=== PATIENT | female | born 1985 | race Two or more races ===

== ENCOUNTER 2020-04-29 13:10 | Inpatient (IN) | payer BC ==
[2020-04-29] MEDS: ELECTROLYTE-148 SOLN 1,000 ML IV SCH (14:10)
[2020-04-29] MEDS ORDERED: CITRIC ACID/SODIUM CITRATE 30 ML UNIT-DOSE CUP PO ONE (15:15)
[2020-04-29] MEDS ORDERED: ELECTROLYTE-148 SOLN 500 ML IV ONE (15:15)
[2020-04-29] MEDS ORDERED: ONDANSETRON 4 MG/2 ML VIAL IVPUSH PRN ×2 (15:16→17:11)
[2020-04-29] MEDS ORDERED: morphine SULFATE/PF 0.5 MG/ML (2cc Syringe - QUVA) ONE (15:25)
[2020-04-29] MEDS ORDERED: ELECTROLYTE-148 SOLN 500 ML IV SCH (15:45)
[2020-04-29] MEDS ORDERED: OXYTOCIN 10 UNITS/ML VIAL ONE ×2 (16:20→16:56)
[2020-04-29] MEDS ORDERED: PHENYLEPHRINE HCL 10 MG/1 ML SINGLE DOSE VIAL ONE (16:20)
[2020-04-29] MEDS ORDERED: KETOROLAC TROMETHAMINE 30 MG/1 ML VIAL ONE (16:20)
[2020-04-29] MEDS ORDERED: ONDANSETRON 4 MG/2 ML VIAL ONE ×2 (16:20→21:29)
[2020-04-29] MEDS ORDERED: morphine SULFATE/PF 0.5 MG/ML (2cc Syringe - QUVA) SPIN ONE (17:06)
[2020-04-29] MEDS ORDERED: MINERAL OIL/PETROLATUM,WHITE 3.5 GM TUBE ONE (17:33)
[2020-04-29] MEDS ORDERED: oxyCODONE HCL 5 MG TABLET PO PRN ×2 (17:37)
[2020-04-29] MEDS ORDERED: IBUPROFEN 800 MG/8 ML IJ IVPB PRN (17:37)
[2020-04-29] MEDS ORDERED: IBUPROFEN 600 MG TABLET (FP) PO PRN (17:37)
[2020-04-29] MEDS ORDERED: WITCH HAZEL 50% (TUCKS) 40 PAD/JAR PAD TP PRN (17:37)
[2020-04-29] MEDS ORDERED: SENNOSIDES/DOCUSATE COMBO (SENNA PLUS) TABLET (UD) PO PRN (17:37)
[2020-04-29] MEDS ORDERED: BENZOCAINE 28 GM HEMORRHOIDAL OINTMENT TP PRN (17:37)
[2020-04-29] MEDS ORDERED: BENZOCAINE 20% 57 GM BOTTLE TP PRN (17:37)
[2020-04-29] MEDS ORDERED: METHYLERGONOVINE MALEATE 0.2 MG/1 ML AMP IM PRN (17:37)
[2020-04-29 17:41] LABS: CORD BASE EXCESS -4.7 mmol/L (0-2); CORD HCO3 21.2 mmHg (20-29); CORD HCO3 26.2 mmHg (20-29); CORD PCO2 65.7 mmHg (30-78); CORD pH 7.218 (7.14-7.44); CORD pH 7.32 (7.14-7.44)
[2020-04-29] MEDS: OXYTOCIN 20 UNITS in 0.9% NS 20 UNIT/1,000 ML INFUS.BAG IV SCH (18:00)
[2020-04-29] MEDS ORDERED: OXYTOCIN 20 UNITS in 0.9% NS 20 UNIT/1,000 ML INFUS.BAG IV ONE (22:13)
[2020-04-30 07:18] LABS: BASO % 0.3 % (0-2.0); EOS % 0.3 % (0-4.5); HEMATOCRIT 27.5 % (32.4-45.2); HEMOGLOBIN 8.9 GM/dL (10.7-15.3); LYMPH % 15.7 % (8-40); MCH 27.6 pg (25.7-33.7); MCHC 32.4 g/dl (32.0-36.0); MEAN CELL VOLUME 85.2 fl (80-96); MONO % 3.9 % (3.8-10.2); NEUT % 79.8 % (42.8-82.8); PLATELET COUNT 233 K/MM3 (134-434); RBC 3.23 M/mm3 (3.60-5.2); RDW 16.3 % (11.6-15.6)
[2020-04-30] MEDS: PRENATAL VITAMINS W/ FOLIC ACID TABLET (FP) PO SCH (10:08)
[2020-04-30] MEDS: ENOXAPARIN NA (PORCINE) 40 MG/0.4 ML DISP.SYRIN SQ SCH (10:08)
[2020-04-30] MEDS: ACETAMINOPHEN 325 MG TABLET (FP) PO PRN ×2 (10:08→17:07)
[2020-04-30] MEDS: IBUPROFEN 600 MG TABLET (FP) PO PRN ×2 (10:09→22:59)
[2020-04-30] MEDS ORDERED: OXYTOCIN 20 UNITS in 0.9% NS 20 UNIT/1,000 ML INFUS.BAG IV ONE (14:19)
[2020-04-30] MEDS ORDERED: BISACODYL 10 MG SUPP.RECT RC PRN (17:37)
[2020-04-30] MEDS: ELECTROLYTE-148 SOLN 1,000 ML IV SCH (21:24)
[2020-04-30] MEDS: OXYTOCIN 20 UNITS in 0.9% NS 20 UNIT/1,000 ML INFUS.BAG IV SCH (21:24)
[2020-04-30] MEDS: SIMETHICONE 80 MG TAB.CHEW (FP) PO PRN (22:59)
[2020-05-01] MEDS: ACETAMINOPHEN 325 MG TABLET (FP) PO PRN ×3 (07:37→19:48)
[2020-05-01] MEDS: IBUPROFEN 600 MG TABLET (FP) PO PRN ×3 (07:37→19:48)
[2020-05-01] MEDS: SIMETHICONE 80 MG TAB.CHEW (FP) PO PRN ×3 (07:38→19:49)
[2020-05-01] MEDS: PRENATAL VITAMINS W/ FOLIC ACID TABLET (FP) PO SCH (09:58)
[2020-05-01] MEDS: ENOXAPARIN NA (PORCINE) 40 MG/0.4 ML DISP.SYRIN SQ SCH (10:00)
[2020-05-01 23:42] VITALS: TEMP 98.2
[2020-05-02] MEDS: IBUPROFEN 600 MG TABLET (FP) PO PRN (04:47)
[2020-05-02] MEDS: ACETAMINOPHEN 325 MG TABLET (FP) PO PRN (04:47)
[2020-05-02] MEDS: SIMETHICONE 80 MG TAB.CHEW (FP) PO PRN (04:48)
[2020-05-02 08:25] LABS: BASO % 0.4 % (0-2.0); EOS % 2.9 % (0-4.5); HEMATOCRIT 28.2 % (32.4-45.2); HEMOGLOBIN 9.1 GM/dL (10.7-15.3); LYMPH % 18.2 % (8-40); MCH 27.5 pg (25.7-33.7); MCHC 32.3 g/dl (32.0-36.0); MEAN CELL VOLUME 85.2 fl (80-96); MEAN PLT VOLUME 7.8 fl (7.5-11.1); MONO % 3.6 % (3.8-10.2); NEUT % 74.9 % (42.8-82.8); PLATELET COUNT 283 K/MM3 (134-434); RDW 16.7 % (11.6-15.6); WHITE BLOOD COUNT 11.1 K/mm3 (4.0-10.0)
[2020-05-02 10:23] VITALS: BP 104/69; PULSE 110
[2020-05-02] MEDS: PRENATAL VITAMINS W/ FOLIC ACID TABLET (FP) PO SCH (11:20)
[2020-05-02] MEDS: ENOXAPARIN NA (PORCINE) 40 MG/0.4 ML DISP.SYRIN SQ SCH (11:21)
== END 2020-05-02 11:45 | disposition home or self-care (01) | DRG 788 ==
LOC: JLDR 13:10 → J3W 22:00
PROVIDERS: ADMIT Obstetrics & Gynecology; ATTEND Obstetrics & Gynecology
PROC: 10D00Z1 Extraction of Products of Conception, Low, Open Approach (ICD-10-PCS; principal; 2020-04-29)
PROC: 0DNW0ZZ Release Peritoneum, Open Approach (ICD-10-PCS; 2020-04-29)
DX: O34.219 Maternal care for unspecified type scar from previous cesarean delivery (principal); O24.424 Gestational diabetes mellitus in childbirth, insulin controlled; O48.0 Post-term pregnancy; Z3A.40 40 weeks gestation of pregnancy; Z37.0 Single live birth; O99.892 Other specified diseases and conditions complicating childbirth; N73.6 Female pelvic peritoneal adhesions (postinfective); Z87.59 Personal history of other complications of pregnancy, childbirth and the puerperium
CPT/HCPCS: 36415; 36600; 82803; 82962; 85025; 88307-TC

== ENCOUNTER 2022-01-01 14:40 | Inpatient (IN) | payer OTHER ==
[2022-01-01] MEDS: ELECTROLYTE-148 SOLN 1,000 ML IV SCH (15:00)
[2022-01-01 15:25] LABS: BASO % 0.3 % (0-2.0); EOS % 0.8 % (0-4.5); HEMATOCRIT 33.9 % (32.4-45.2); HEMOGLOBIN 11.2 GM/dL (10.7-15.3); LYMPH % 21.8 % (8-40); MCH 28.2 pg (25.7-33.7); MCHC 33.1 g/dl (32.0-36.0); MEAN CELL VOLUME 85.2 fl (80-96); MEAN PLT VOLUME 8.1 fl (7.5-11.1); MONO % 3.6 % (3.8-10.2); NEUT % 73.5 % (42.8-82.8); PLATELET COUNT 255 10^3/uL (134-434); RBC 3.98 M/mm3 (3.60-5.2); RDW 16.4 % (11.6-15.6); WHITE BLOOD COUNT 9.4 K/mm3 (4.0-10.0)
[2022-01-01 15:31] LABS: INR 0.99 (0.83-1.09); PROTHROMBIN TIME (PATIENT) 11.4 SEC (9.7-13.0)
[2022-01-01] MEDS ORDERED: morphine SULFATE/PF 1 MG/2 ML (2cc Syringe - QUVA) ONE (15:32)
[2022-01-01 15:34] LABS: ACTIVATED PTT 29.6 SECONDS (25.2-36.5)
[2022-01-01 15:38] VITALS: BMI 32.2
[2022-01-01 15:46] LABS: CALCIUM 8.5 mg/dL (8.5-10.1)
[2022-01-01 15:50] LABS: CREATININE 0.5 mg/dL (0.55-1.3)
[2022-01-01] MEDS ORDERED: SODIUM CHLORIDE 0.9% P/F 10 ML VIAL IJ ONE ×2 (15:50→16:50)
[2022-01-01] MEDS ORDERED: ceFAZolin SODIUM 1 GM VIAL ONE ×2 (15:50)
[2022-01-01] MEDS ORDERED: OXYTOCIN 10 UNITS/ML VIAL ONE (15:50)
[2022-01-01] MEDS ORDERED: CITRIC ACID/SODIUM CITRATE 30 ML UNIT-DOSE CUP PO ONE (16:14)
[2022-01-01 16:40] LABS: HIV INTERPRETATION NEGATIVE (NEGATIVE)
[2022-01-01] MEDS ORDERED: PHENYLEPHRINE HCL 10 MG/1 ML SINGLE DOSE VIAL ONE (17:01)
[2022-01-01 18:03] LABS: CORD HCO3 25.9 mmHg (20-29); CORD PCO2 64.2 mmHg (30-78); CORD pH 7.223 (7.14-7.44)
[2022-01-01 18:06] LABS: CORD HCO3 29.7 mmHg (20-29); CORD PCO2 60.4 mmHg (30-78)
[2022-01-01] MEDS ORDERED: ONDANSETRON 4 MG/2 ML VIAL IVPUSH PRN (18:15)
[2022-01-01] MEDS ORDERED: METHYLERGONOVINE MALEATE 0.2 MG/1 ML AMP IM PRN (18:16)
[2022-01-01] MEDS ORDERED: ACETAMINOPHEN 325 MG TABLET (FP) PO PRN ×2 (18:16)
[2022-01-01] MEDS ORDERED: ACETAMINOPHEN 1000 MG/100 ML BAG IVPB ONE (18:16)
[2022-01-01] MEDS ORDERED: SENNOSIDES/DOCUSATE COMBO (SENNA PLUS) TABLET (UD) PO PRN (18:16)
[2022-01-01] MEDS ORDERED: IBUPROFEN 600 MG TABLET (FP) PO PRN (18:16)
[2022-01-01] MEDS ORDERED: ACETAMINOPHEN INJECTION 100 ML IVPB ONE (19:21)
[2022-01-01] MEDS: OXYTOCIN 20 UNITS in 0.9% NS 20 UNIT/1,000 ML INFUS.BAG IV SCH (20:35)
[2022-01-01] MEDS: IBUPROFEN 800 MG/8 ML IJ IVPB PRN (20:51)
[2022-01-01] MEDS: CEFAZOLIN 1 GM in DEXTROSE 5%-WATER - 50 ML IVPB SCH (23:43)
[2022-01-02] MEDS: SIMETHICONE 80 MG TAB.CHEW (FP) PO PRN ×3 (05:17→18:15)
[2022-01-02] MEDS: IBUPROFEN 800 MG/8 ML IJ IVPB PRN (05:18)
[2022-01-02] MEDS: OXYTOCIN 20 UNITS in 0.9% NS 20 UNIT/1,000 ML INFUS.BAG IV SCH ×2 (06:10→19:40)
[2022-01-02] MEDS ORDERED: oxyCODONE HCL 5 MG TABLET PO PRN ×2 (06:16)
[2022-01-02] MEDS: CEFAZOLIN 1 GM in DEXTROSE 5%-WATER - 50 ML IVPB SCH ×2 (08:35→16:30)
[2022-01-02] MEDS: IBUPROFEN 600 MG TABLET (FP) PO PRN ×3 (09:30→18:16)
[2022-01-02] MEDS: ENOXAPARIN NA (PORCINE) 40 MG/0.4 ML DISP.SYRIN SQ SCH (09:32)
[2022-01-02 09:39] LABS: BASO % 0.5 % (0-2.0); EOS % 0.8 % (0-4.5); HEMATOCRIT 32.2 % (32.4-45.2); HEMOGLOBIN 10.2 GM/dL (10.7-15.3); LYMPH % 13.5 % (8-40); MCH 27.3 pg (25.7-33.7); MCHC 31.8 g/dl (32.0-36.0); MEAN CELL VOLUME 85.8 fl (80-96); MEAN PLT VOLUME 8.4 fl (7.5-11.1); MONO % 2.5 % (3.8-10.2); NEUT % 82.7 % (42.8-82.8); PLATELET COUNT 226 10^3/uL (134-434); RBC 3.76 M/mm3 (3.60-5.2); RDW 16.4 % (11.6-15.6); WHITE BLOOD COUNT 11.9 K/mm3 (4.0-10.0)
[2022-01-02] MEDS ORDERED: BISACODYL 10 MG SUPP.RECT RC PRN (18:16)
[2022-01-02] MEDS: ELECTROLYTE-148 SOLN 1,000 ML IV SCH (19:40)
[2022-01-03] MEDS: IBUPROFEN 600 MG TABLET (FP) PO PRN ×3 (01:00→19:20)
[2022-01-03] MEDS: SIMETHICONE 80 MG TAB.CHEW (FP) PO PRN ×2 (09:04→19:20)
[2022-01-03] MEDS: ENOXAPARIN NA (PORCINE) 40 MG/0.4 ML DISP.SYRIN SQ SCH (09:04)
[2022-01-04 08:50] LABS: BASO % 0.4 % (0-2.0); EOS % 5.4 % (0-4.5); HEMATOCRIT 29.2 % (32.4-45.2); HEMOGLOBIN 9.7 GM/dL (10.7-15.3); LYMPH % 18.6 % (8-40); MCH 28.7 pg (25.7-33.7); MCHC 33.4 g/dl (32.0-36.0); MEAN CELL VOLUME 86.1 fl (80-96); MEAN PLT VOLUME 7.7 fl (7.5-11.1); MONO % 3.4 % (3.8-10.2); NEUT % 72.2 % (42.8-82.8); PLATELET COUNT 260 10^3/uL (134-434); RBC 3.39 M/mm3 (3.60-5.2); RDW 17.1 % (11.6-15.6); WHITE BLOOD COUNT 10.9 K/mm3 (4.0-10.0)
[2022-01-04] MEDS: IBUPROFEN 600 MG TABLET (FP) PO PRN (10:19)
[2022-01-04] MEDS: ENOXAPARIN NA (PORCINE) 40 MG/0.4 ML DISP.SYRIN SQ SCH (11:21)
[2022-01-04 12:58] VITALS: BP 113/76; PULSE 92; RESP 18; TEMP 98.6
== END 2022-01-04 12:15 | disposition home or self-care (01) | DRG 788 ==
LOC: JLDR 14:40 → J3W 19:54
PROVIDERS: ADMIT Obstetrics & Gynecology; ATTEND Obstetrics & Gynecology
PROC: 10D00Z1 Extraction of Products of Conception, Low, Open Approach (ICD-10-PCS; principal; 2022-01-01)
DX: O24.424 Gestational diabetes mellitus in childbirth, insulin controlled (principal); O34.219 Maternal care for unspecified type scar from previous cesarean delivery; Z3A.38 38 weeks gestation of pregnancy; Z37.0 Single live birth
CPT/HCPCS: 36415; 36600; 80048; 82803; 82962; 85025; 85610; 85730; 86780; 86850; 86900; 86901; 87389; 88307-TC; C9803-CS; U0003; U0005